=== PATIENT | male | born 1955 | race American Indian/Alaskan Native ===

== ENCOUNTER 2019-05-06 13:37 | Outpatient (CLI) | payer OTHER ==
--- NOTE | 2019-05-06 15:30 | Magnetic Resonance Report ---
MRI LEFT SHOULDER WITHOUT CONTRAST INDICATION / CLINICAL INFORMATION: PERSISTENT LEFT SHOULDER PAIN WITH RADICULOPATHY/+DROP SIGN CONC. COMPARISON: None available. TECHNIQUE: Multisequence, multiplanar images were obtained. FINDINGS: SUPRASPINATUS: A focal full-thickness tear is suspected in the distal anterior supraspinatus tendon j ust lateral to the acromion. INFRASPINATUS: No significant abnormality. SUBSCAPULARIS: Mild diffuse thickening and increased intrinsic signal is identified consistent with t endinosis. BICEPS TENDON, LONG HEAD: No significant abnormality. GLENOID LABRUM: No significant abnormality. ARTICULAR CARTILAGE: Mild diffuse thinning. JOINT SPACE AND CAPSULE: Small joint effusion. ACROMION and A.C. JOINT: Moderate osteoarthritic changes with mild hypertrophy. SUBACROMIAL/SUBDELTOID SPACE: Small to medium fluid is identified in the subacromial and subdeltoid s paces. BONES: No significant bone marrow edema. No fracture. No osseous lesion. SUBCUTANEOUS SOFT TISSUES: No significant abnormality. ADDITIONAL FINDINGS: None. IMPRESSION: Focal full-thickness tear is suspected in the distal anterior supraspinatus tendon. Fluid in the suba cromial and subdeltoid spaces. Subscapularis tendinosis. Moderate acromioclavicular osteoarthritis. Signer Name: Daniel Costa Jr, MD Signed: 05/06/2019 3:26 PM Workstation Name: [id number]
== END 2019-05-06 13:38 | disposition home or self-care (01) ==
LOC: MRI 13:37
PROVIDERS: ATTEND Internal Medicine
DX: M19.012 Primary osteoarthritis, left shoulder (principal); M25.412 Effusion, left shoulder